=== PATIENT | female | born 1980 | race African-American/Black ===

== ENCOUNTER 2018-05-09 12:26 | Day surgery (SDC) | payer OTHER ==
[2018-05-09] MEDS: NS 1,000 ML IV (12:45)
[2018-05-09] MEDS ORDERED: fentaNYL 100 MCG/2 ML INJECTION (J3010) As Ordered (13:43)
[2018-05-09] MEDS ORDERED: PROPOFOL 200 MG/20 ML VIAL As Ordered (13:43)
[2018-05-09] MEDS ORDERED: LIDOCAINE 2% INJ 100 MG/5 ML SDV (FOR ANES.) As Ordered (13:43)
== END 2018-05-09 15:05 | disposition home or self-care (01) ==
LOC: M OPP 12:26
DX: R10.13 Epigastric pain (principal)
CPT/HCPCS: 43239

== ENCOUNTER → 2018-08-14 | Outpatient (REF) | payer OTHER ==
[~2018-08-14] MED LIST: ALLE180T33 PO; MULT1CHW39 PO; OMEP20CA3 PO; PROBCAP14 PO
== END ==
LOC: M SFHCLERA 09:42
PROVIDERS: ATTEND Physician Assistant
DX: R52 Pain, unspecified (principal)